=== PATIENT | female | born 1965 | race Caucasian/White ===

== ENCOUNTER 2016-04-26 22:49 | Emergency (ER) | payer OTHER ==
[~2016-04-26] VITALS: Ht 157.5 cm; Wt 64.0 kg
--- NOTE | 2016-04-27 00:11 | ED GI/GU/ABDOMINAL COMPLAINT ---
History of Present Illness General Chief Complaint: Abdominal Pain/Flank Pain Stated Complaint: ABD. ISSUES [id number] ON AND OFF Source: patient Exam Limitations: no limitations Vital Signs & Intake/Output Vital Signs & Intake/Output Vital Signs Date Time Temp Pulse Resp B/P Pulse O2 O2 Flow FiO2 Ox Delivery Rate 04/26 2257 97.8 94 20 147/102 98 Room Air ED Intake and Output 04/27 0000 04/26 1200 Intake Total Output Total Balance Patient 141 lb Weight Allergies Coded Allergies: Sulfa (Sulfonamide Antibiotics) (Mild, dizzy 04/26/16) erythromycin base (Mild, ITCHING, NAUSEA 04/26/16) Reconcile Medications Dicyclomine Hydrochloride (Bentyl) 10 MG CAPSULE 1 CAP PO 4 TIMES/DAY ABDOMINAL CRAMPS Ondansetron (Zofran Odt) 4 MG TAB.RAPDIS 1 TAB SL 4 TIMES/DAY NAUSEA Triage Note: RECEIVED 50 YO FEMALE C/O LOWER ABDOMIANL PAIN RADIATING AROUND BACK, WITH NAUSEA SINCE MONDAY. RESOLVED TODAY AND CAME BACK THIS EVENING WITH ABDOMINAL PAIN AND SEVERE VOMITING. Triage Nurses Notes Reviewed? yes ? n Is pt currently ? No Timing: recent history Location: generalized abdomen Radiation: no radiation Activities at Onset: none Prior Abdominal Problems: similar symptoms Associated Symptoms: abdominal pain, nausea/vomiting HPI: 50 yo woman, h/o IBS, Presents with 6 day history of nausea and vomiting. She had several loose stools 2 days ago. She had a normal stool today. She notes that this is similar to her prior episodes of irritable bowel syndrome , "but this time it seems worse." She notes that she did drink some almond milk that, "tasted funny, "prior to her symptoms. She has no fever chills shortness of breath cough phlegm dysuria. Past History Travel History Traveled to [place] past 21 day No Medical History Any Pertinent Medical History? see below for history Neurological: NONE EENT: NONE Cardiovascular: NONE Respiratory: NONE Gastrointestinal: GERD, irritable bowel syndrome Hepatic: NONE Renal: NONE Musculoskeletal: NONE Psychiatric: NONE Endocrine: NONE Blood Disorders: NONE Cancer(s): NONE Surgical History Surgical History: none Psychosocial History What is your primary language Persian Tobacco Use: Never used Family History Hx Contributory? No Review of Systems Review of Systems Constitutional: Reports: no symptoms. EENTM: Reports: no symptoms. Respiratory: Reports: no symptoms. Cardiovascular: Reports: no symptoms. GI: Reports: no symptoms. Genitourinary: Reports: no symptoms. Musculoskeletal: Reports: no symptoms. Skin: Reports: no symptoms. Neurological/Psychological: Reports: no symptoms. Hematologic/Endocrine: Reports: no symptoms. Immunologic/Allergic: Reports: no symptoms. All Other Systems: Reviewed and Negative Physical Exam Physical Exam General Appearance: well developed/nourished, mild distress Head: atraumatic, normal appearance Eyes: Bilateral: normal appearance. Ears, Nose, Throat, Mouth: hearing grossly normal Neck: normal inspection, supple, full range of motion Respiratory: normal breath sounds, chest non-tender, no respiratory distress, quiet respiration, lungs clear Cardiovascular: regular rate/rhythm Gastrointestinal: normal bowel sounds, soft, non-tender, no organomegaly Back: normal inspection, normal range of motion Extremities: normal range of motion Neurologic/Psych: no motor/sensory deficits, awake, alert, oriented x 3 Skin: intact, normal color, warm/dry Core Measures ACS in differential dx? No Severe Sepsis Present: No Septic Shock Present: No Progress Differential Diagnosis: ibs vs viral syndrome vs other. Plan of Care: Orders Procedure Date/time Status URINALYSIS 04/26 2250 Complete LIPASE 04/26 2250 Complete HEPATIC FUNCTION PANEL 04/26 2250 Complete CBC WITHOUT DIFFERENTIAL 04/26 2250 Complete BASIC METABOLIC PANEL 04/26 2250 Complete AMYLASE 04/26 2250 Complete Laboratory Tests 04/27/16 0242: Urinalysis LIGHT H, Urine Color YEL, Urine Clarity HAZY H, Urine pH 7.0, Ur Specific [place] 1.020, Urine Protein NEG, Urine Ketones NEG, Urine Nitrite NEG, Urine Bilirubin NEG, Urine Urobilinogen 0.2, Ur Leukocyte Esterase NEG, Ur Microscopic SEDIMENT EXAMINED, Urine RBC RARE, Urine WBC 3-5 H, Ur Epithelial Cells MANY H, Urine Bacteria MANY H, Urine Mucus MOD H, Urine Hemoglobin SMALL H, Urine Glucose NEG 04/27/16 0034: Anion Gap 5, Estimated GFR > 60, BUN/Creatinine Ratio 20.0, Glucose 102 H, Calcium 9.4, Total Bilirubin 0.7, Direct Bilirubin 0.5 H, AST 26, ALT 25, Alkaline Phosphatase 38, Total Protein 6.2 L, Albumin 3.9, Amylase 55, Lipase 113, CBC w Diff NO MAN DIFF REQ, RBC 4.49, MCV 88.4, MCH 30.1, RDW 13.1, MPV 8.5 , Gran % 78.8 H, Lymphocytes % 14.0 L, Monocytes % 5.6, Eosinophils % 1.1, Basophils % 0.5, Absolute Granulocytes 9.2 H, Absolute Lymphocytes 1.6, Absolute Monocytes 0.7 H, Absolute Eosinophils 0.1, Absolute Basophils 0.1, PUBS MCHC 34.1 Initial ED EKG: none Departure Departure Disposition: HOME OR SELF CARE Condition: Stable Clinical Impression Primary Impression: Abdominal pain Secondary Impressions: Irritable bowel syndrome, Nausea and vomiting Referrals: LUCIA ELIZONDO,ANNITA Prieto (PCP/Family) Departure Forms: Customer Survey General Discharge Information Prescriptions: Current Visit Scripts Ondansetron (Zofran Odt) 1 TAB SL 4 TIMES/DAY #10 TAB Dicyclomine Hydrochloride (Bentyl) 1 CAP PO 4 TIMES/DAY #60 CAP Comments 04/27/16, 3:13am... pt feeling better, labs benign... pt safe for discharge with close follow up.
[2016-04-27 00:45] LABS: ABSOLUTE BASOPHIL COUNT 0.1 /CUMM (0.0-0.2); ABSOLUTE EOSINOPHIL COUNT 0.1 /CUMM (0.0-0.7); ABSOLUTE GRANULOCYTE CT 9.2 /CUMM (1.4-6.5); ABSOLUTE LYMPH COUNT 1.6 /CUMM (1.2-3.4); ABSOLUTE MONOCYTE COUNT 0.7 /CUMM (0.10-0.60); BASOPHIL % 0.5 % (0.0-2.0); EOSINOPHIL % 1.1 % (0-5); GRANULOCYTE % 78.8 % (42.2-75.2); HEMATOCRIT 39.7 % (37-47); MEAN CORPUSCULAR HGB 30.1 PG (27.0-31.0); MEAN CORPUSCULAR HGB CONC 34.1 G/DL (33.0-37.0); MEAN CORPUSCULAR VOLUME 88.4 FL (81.0-99.0); MEAN PLATELET VOLUME 8.5 FL (7.4-10.4); PLATELET COUNT 326 /CUMM (130-400); RBC DISTRIBUTION WIDTH 13.1 % (11.5-14.5); RED BLOOD CELL CT 4.49 /CUMM (4.20-5.40); WHITE BLOOD CELL COUNT 11.7 /CUMM (4.8-10.8)
[2016-04-27] MEDS ORDERED: BENTYL10 M1 PO (03:11)
[2016-04-27] MEDS ORDERED: ZOFRAN ODT4 M1 SL (03:11)
[2016-04-27 03:54] VITALS: BP 138/88
== END 2016-04-27 04:01 ==
LOC: ERH 22:49
PROVIDERS: Pediatrics
DX: K58.9 Irritable bowel syndrome, unspecified (principal); R11.2 Nausea with vomiting, unspecified; R10.84 Generalized abdominal pain
CPT/HCPCS: 81001; 96374; J2405